=== PATIENT | male | born 1945 | race Caucasian/White ===

== ENCOUNTER 2018-09-04 05:33 | Inpatient (IN) ==
[2018-09-04] MEDS ORDERED: FAMOTIDINE 20 MG TABLET PO ONE (06:00)
[2018-09-04] MEDS ORDERED: ALVIMOPAN 12 MG CAPSULE ONE (06:11)
[2018-09-04] MEDS ORDERED: INDOCYANINE GREEN 25 MG VIAL IV ONE (06:11)
[2018-09-04] MEDS ORDERED: cefTRIAXone 1,000 MG VIAL ONE (06:11)
[2018-09-04] MEDS ORDERED: ALVIMOPAN 12 MG CAPSULE PO ONE (06:30)
[2018-09-04] MEDS: LACTATED RINGERS 1,000 ML IV SCH (06:44)
[2018-09-04] MEDS ORDERED: FAMOTIDINE 20 MG TABLET ONE (06:50)
[2018-09-04] MEDS ORDERED: cefTRIAXone 1,000 MG in SYRINGE 1 EACH IV ONE (08:00)
[2018-09-04] MEDS ORDERED: NALOXONE 0.4 MG/ML VIAL IV PRN (08:07)
[2018-09-04] MEDS ORDERED: diphenhydrAMINE 50 MG/1 ML VIAL IV PRN (11:16)
[2018-09-04] MEDS ORDERED: ONDANSETRON 4 MG/2 ML VIAL IV PRN ×2 (11:16→11:52)
[2018-09-04 11:28] LABS: Apearance,Urine Slightly Hazy (Clear); Bilirubin,Urine Negative (Negative); Blood, Urine Large mg/dL (Negative); Glucose,Urine (UA) 50 mg/dL (Negative); Hyaline Casts,Urine 1 /LPF (0-3); Ketones,Urine Negative (Negative); Mucus,Urine Occasional /LPF (Occasional); Nitrite,Urine Negative (Negative); Protein,Urine Negative; RBC,Urine 112 /HPF (0-4); Squamous Epithelial Cell,Urine Occasional /HPF (0-10); Urine Color Yellow (Yellow); Urine Specific Gravity 1.013 (1.001-1.035); Urine Urobilinogen < 2.0 EU/DL (0.2-1.0); WBC,Urine 7 /HPF (0-6)
[2018-09-04] MEDS ORDERED: MANNITOL 12.5 GM/50 ML VIAL IV ONE (11:42)
[2018-09-04] MEDS ORDERED: ALBUMIN 5% 12.5 GM/250 ML VIAL IV ONE (11:42)
[2018-09-04] MEDS ORDERED: PROPOFOL 200 MG/20 ML VIAL IV ONE (11:42)
[2018-09-04] MEDS ORDERED: SEVOFLURANE 1 UNIT/15 MINUTE INH ONE (11:42)
[2018-09-04] MEDS ORDERED: GLYCOPYRROLATE 0.4 MG/2 ML VIAL ONE (11:43)
[2018-09-04] MEDS ORDERED: SUFentanil 50 MCG/ML AMP ONE (11:43)
[2018-09-04] MEDS ORDERED: ACETAMINOPHEN 1,000 MG/100 ML VIAL IV ONE (11:43)
[2018-09-04] MEDS ORDERED: DEXAMETHASONE 4 MG/1 ML VIAL ONE (11:43)
[2018-09-04] MEDS ORDERED: LACTATED RINGERS 1,000 ML IV ONE (11:44)
[2018-09-04] MEDS ORDERED: SODIUM CHLORIDE 0.9% 250 ML IV ONE (11:44)
[2018-09-04] MEDS ORDERED: ROCURONIUM 100 MG/10 ML VIAL IV ONE (11:44)
[2018-09-04] MEDS ORDERED: NEOSTIGMINE 10 MG/10 ML VIAL ONE (11:44)
[2018-09-04] MEDS ORDERED: PHENYLEPHRINE 1 MG/10 ML SYRINGE IV ONE (11:44)
[2018-09-04] MEDS ORDERED: HYDROmorphone 2 MG/1 ML VIAL ONE (11:44)
[2018-09-04] MEDS ORDERED: ONDANSETRON 4 MG/2 ML VIAL ONE ×2 (11:44)
[2018-09-04] MEDS ORDERED: HYDROmorphone 2 MG/1 ML VIAL IV PRN (11:52)
[2018-09-04] MEDS: HYDROmorphone PCA 30 MG/30 ML SYRINGE IV SCH ×2 (12:13→14:43)
[2018-09-04] MEDS: DEXTROSE 5% NACL 0.45% 1,000 ML IV SCH (14:44)
[2018-09-04] MEDS: ALVIMOPAN 12 MG CAPSULE PO SCH (20:41)
[2018-09-04] MEDS: amLODIPine 5 MG TABLET PO SCH (20:41)
[2018-09-05] MEDS: DEXTROSE 5% NACL 0.45% 1,000 ML IV SCH ×2 (01:38→09:52)
[2018-09-05 05:52] LABS: Basophils % 0.1 % (0.0-0.8); Hematocrit 38.6 VOL% (42.0-52.0); Hemoglobin 12.6 GM/DL (14.0-18.0); Immature Granulocytes % 1.1 %; Immature Granulocytes Absolute 0.16 #; Lymphocytes # 1.1 10*3/uL (1.4-4.0); Lymphocytes % 7.4 % (21.2-54.2); Mean Corpuscular HGB Conc 32.6 GM/DL (32-36); Mean Corpuscular Hemoglobin 33 PG (27-34); Mean Corpuscular Volume 100.5 FL (87-102); Mean Platelet Volume 10.9 FL (9.6-12.0); Monocytes # 1.2 10*3/uL (0.11-0.8); Monocytes % 7.7 % (1.7-12.7); Neutrophils # 12.6 10*3/uL (1.4-7.4); Neutrophils % 83.7 % (38.7-73.9); Platelet Count 189 T/CUMM (130-400); Red Blood Count 3.84 MC/CUMM (3.8-5.5); Red Cell Distribution Width 12.8 % (9.3-17.3)
[2018-09-05] MEDS: LACTATED RINGERS 1,000 ML IV SCH (05:53)
[2018-09-05 06:07] LABS: Calcium 8.5 MG/DL (8.5-10.1); Osmolality,Calculated 277.8 MOS/KG (273-304); Potassium 4.4 MMOL/L (3.5-5.1)
[2018-09-05] MEDS: ALVIMOPAN 12 MG CAPSULE PO SCH ×2 (09:50→20:38)
[2018-09-05] MEDS: HYDROmorphone PCA 30 MG/30 ML SYRINGE IV SCH (09:51)
[2018-09-05] MEDS ORDERED: oxyCODONE/ACETAMINOPHEN 5-325 MG TABLET PO PRN (11:59)
[2018-09-05] MEDS ORDERED: ALUMINUM/MAGNES/SIMETH MAX STR 30 ML UDCUP PO PRN (12:04)
[2018-09-05] MEDS ORDERED: MAGNESIUM HYDROXIDE SUSP 30 ML UDCUP PO PRN (12:18)
[2018-09-05] MEDS: oxyCODONE/ACETAMINOPHEN 5-325 MG TABLET PO PRN ×2 (12:21→20:38)
[2018-09-05] MEDS: amLODIPine 5 MG TABLET PO SCH (20:38)
[2018-09-06] MEDS: LACTATED RINGERS 1,000 ML IV SCH (06:03)
[2018-09-06] MEDS: ALVIMOPAN 12 MG CAPSULE PO SCH (08:43)
[2018-09-06 09:35] VITALS: BP 135/83
== END 2018-09-06 11:44 | disposition home or self-care (01) | DRG 658 ==
LOC: N.OR 05:33 → N.SDSINP 05:34 → N.5E 11:16
PROVIDERS: ADMIT Urology; ATTEND Urology